=== PATIENT | male | born 1945 ===

== ENCOUNTER 2018-01-21 09:50 | Outpatient (CLI) | payer OTHER ==
[~2018-01-21 09:50] MED LIST: ADULT ASPIRIN81 MG; CALCITRIOL0.25 MCG; CILOSTAZOL100 MG; CLARITIN10 M1; DOXAZOSIN MESYLA4 MG; GLIMEPIRIDE4 MG; HUMALOG100 U/M1; INDAPAMIDE1.25 MG; LANTUS100 U/ML; LIPITOR40 MG; LIPOFLAVOVIT CA1 TAB; NEURONTIN300 MG; NORVASC10 MG; PRINIVIL40 MG; SIMVASTATIN80 MG; ZETIA10 MG
== END 2018-01-21 09:59 | disposition home or self-care (01) ==
LOC: TOM 09:50
DX: I69.328 Other speech and language deficits following cerebral infarction (principal)

== ENCOUNTER 2020-09-20 13:15 | Outpatient (CLI) | payer OTHER | END 2020-09-20 13:19 | disposition home or self-care (01) | LOC: NUCLEAR 13:15 | PROVIDERS: ATTEND Internal Medicine Endocrinology, Diabetes & Metabolism | DX: M85.89 Other specified disorders of bone density and structure, multiple sites (principal); Z13.820 Encounter for screening for osteoporosis ==